=== PATIENT | male | born 1985 | race Caucasian/White ===

== ENCOUNTER 2022-02-22 00:37 | Emergency (ER) | payer OTHER ==
[2022-02-22 00:49] VITALS: BMI 23.2
[2022-02-22] MEDS ORDERED: ACETAMINOPHEN 1000 MG/100 ML BAG IVPB ONE (01:23)
[2022-02-22] MEDS ORDERED: ONDANSETRON 4 MG/2 ML VIAL IVPUSH ONE (01:23)
[2022-02-22] MEDS ORDERED: SODIUM CHLORIDE 0.9% 500 ML INFUS.BAG IV ONE (01:23)
[2022-02-22] MEDS ORDERED: ONDANSETRON 4 MG/2 ML VIAL ONE (01:51)
[2022-02-22] MEDS ORDERED: ACETAMINOPHEN INJECTION 100 ML IVPB ONE (01:51)
[2022-02-22 02:11] LABS: BASO % 0.3 % (0-2.0); EOS % 0.5 % (0-4.5); HEMATOCRIT 42.1 % (35.4-49); HEMOGLOBIN 14.3 GM/dL (11.7-16.9); LYMPH % 7.6 % (8-40); MCH 31.3 pg (25.7-33.7); MEAN CELL VOLUME 92.2 fl (80-96); MEAN PLT VOLUME 7.8 fl (7.5-11.1); MONO % 6.2 % (3.8-10.2); NEUT % 85.4 % (42.8-82.8); PLATELET COUNT 371 10^3/uL (134-434); RBC 4.56 M/mm3 (4.00-5.60); RDW 13.7 % (11.9-15.9)
[2022-02-22 02:13] LABS: EPI CELLS 2 /uL (0-25.1); HYALINE CASTS 1 /uL (0-3.1); PH,URINE 5.5 (5.0-8.0); URINE APPEARANCE CLEAR; URINE BACTERIA 2 /uL (0-1359); URINE BILIRUBIN NEGATIVE (NEGATIVE); URINE COLOR YELLOW; URINE GLUCOSE (UA) NEGATIVE (NEGATIVE); URINE KETONE TRACE (NEGATIVE); URINE LEUK ESTERASE NEGATIVE (NEGATIVE); URINE NITRITE NEGATIVE (NEGATIVE); URINE PROTEIN TRACE (NEGATIVE); URINE RBC 288 /uL (0-23.9); URINE UROBILINOGEN 0.2 mg/dL (0.2-1.0); URINE WBC 8 /uL (0-25.8)
[2022-02-22 02:35] LABS: ALBUMIN 4.1 g/dl (3.4-5.0); CALCIUM 9.6 mg/dL (8.5-10.1); MAGNESIUM 2.1 mg/dL (1.8-2.4)
[2022-02-22 02:38] LABS: CREATININE 0.9 mg/dL (0.55-1.3)
[2022-02-22 02:39] LABS: BILIRUBIN,TOTAL 0.6 mg/dL (0.2-1); TOT PROT 7.3 g/dl (6.4-8.2)
[2022-02-22] MEDS ORDERED: POLYETHYLENE GLYCOL (HEALTHYLAX) 3350 17 GM PACKET PO ONE (04:30)
[2022-02-22] MEDS ORDERED: POLYETHYLENE GLYCOL (HEALTHYLAX) 3350 17 GM PACKET ONE (04:35)
[2022-02-22 08:12] VITALS: BP 114/72; PULSE 77; RESP 17; TEMP 97.9
== END 2022-02-22 08:19 | disposition home or self-care (01) ==
LOC: JER 00:37
DX: R10.9 Unspecified abdominal pain (principal); K59.00 Constipation, unspecified
CPT/HCPCS: 0241U-QW; 36415; 74177-TC; 80053; 81003; 82272; 83605; 83690; 83735; 85025; 87086; 93005; 93010; 99285-25; Q9967

== ENCOUNTER 2022-02-22 14:57 | Inpatient (IN) | payer OTHER ==
[2022-02-22] MEDS ORDERED: ONDANSETRON 4 MG/2 ML VIAL IVPUSH ONE ×2 (16:07→17:28)
[2022-02-22] MEDS ORDERED: ACETAMINOPHEN 500 MG TABLET (FP) PO ONE (16:07)
[2022-02-22] MEDS ORDERED: ONDANSETRON 4 MG/2 ML VIAL ONE ×2 (16:33→17:39)
[2022-02-22 16:45] LABS: BASO % 0.2 % (0-2.0); EOS % 0.6 % (0-4.5); HEMATOCRIT 40.2 % (35.4-49); HEMOGLOBIN 13.8 GM/dL (11.7-16.9); LYMPH % 10.3 % (8-40); MCH 31.9 pg (25.7-33.7); MCHC 34.3 g/dl (32.0-35.9); MEAN CELL VOLUME 92.8 fl (80-96); MEAN PLT VOLUME 7.4 fl (7.5-11.1); MONO % 6.6 % (3.8-10.2); NEUT % 82.3 % (42.8-82.8); PLATELET COUNT 341 10^3/uL (134-434); RBC 4.34 M/mm3 (4.00-5.60); RDW 13.2 % (11.9-15.9); WHITE BLOOD COUNT 9.8 K/mm3 (4.0-10.0)
[2022-02-22] MEDS ORDERED: ACETAMINOPHEN 1000 MG/100 ML BAG IVPB ONE (16:56)
[2022-02-22] MEDS ORDERED: ACETAMINOPHEN INJECTION 100 ML IVPB ONE (17:01)
[2022-02-22 17:04] LABS: CALCIUM 9.3 mg/dL (8.5-10.1)
[2022-02-22 17:05] LABS: BLOOD UREA NITROGEN 14.3 mg/dL (7-18)
[2022-02-22 17:07] LABS: CREATININE 0.9 mg/dL (0.55-1.3)
[2022-02-22 17:09] LABS: BILIRUBIN,TOTAL 0.6 mg/dL (0.2-1); TOT PROT 7.2 g/dl (6.4-8.2)
[2022-02-22] MEDS ORDERED: cloNIDine HCL 0.1 MG TABLET PO ONE (17:29)
[2022-02-22] MEDS ORDERED: morphine CARPU-JECT 4 MG/1 ML DISP.SYRIN IVPUSH ONE (17:29)
[2022-02-22] MEDS ORDERED: QUEtiapine FUMARATE 400 MG TABLET PO ONE (17:29)
[2022-02-22] MEDS ORDERED: morphine SULFATE 4 MG/ML VIAL ONE (17:39)
[2022-02-22] MEDS ORDERED: cloNIDine HCL 0.1 MG TABLET ONE (17:39)
[2022-02-22] MEDS ORDERED: QUEtiapine FUMARATE 100 MG TABLET (FP) ONE (17:39)
[2022-02-22] MEDS ORDERED: ONDANSETRON 4 MG/2 ML VIAL IVPUSH PRN (18:29)
[2022-02-22] MEDS ORDERED: LACTATED RINGERS SOLUTION 1,000 ML IV SCH (18:30)
[2022-02-22] MEDS ORDERED: SEVOFLURANE 250 ML BTL ONE (18:44)
[2022-02-22] MEDS ORDERED: D5-1/2NS+20 MEQ KCL - 20 MEQ/1,000 ML INFUS.BAG IV SCH (20:30)
[2022-02-22] MEDS ORDERED: QUEtiapine FUMARATE 200 MG TABLET PO ONE ×2 (22:24)
[2022-02-22] MEDS: LACTATED RINGERS SOLUTION 1,000 ML/1,000 ML INFUS.BAG IV SCH ×2 (22:25→23:26)
[2022-02-22] MEDS ORDERED: QUEtiapine FUMARATE 100 MG TABLET (FP) PO ONE (23:15)
[2022-02-23 00:08] VITALS: BMI 23.6
[2022-02-23 06:36] LABS: URINE BARBITURATES NEGATIVE (NEGATIVE)
[2022-02-23 06:37] LABS: COCAINE, UR NEGATIVE (NEGATIVE); METHADONE, UR NEGATIVE (NEGATIVE); PHENCYCLIDINE,URINE NEGATIVE (NEGATIVE); URINE BENZODIAZEPINES NEGATIVE (NEGATIVE)
[2022-02-23 06:53] LABS: OPIATES, URI POSITIVE (NEGATIVE); URINE AMPHETAMINES NEGATIVE (NEGATIVE)
[2022-02-23 06:56] LABS: URINE APPEARANCE CLEAR; URINE BILIRUBIN NEGATIVE (NEGATIVE); URINE COLOR YELLOW; URINE GLUCOSE (UA) NEGATIVE (NEGATIVE); URINE KETONE 1+ (NEGATIVE); URINE LEUK ESTERASE NEGATIVE (NEGATIVE); URINE NITRITE NEGATIVE (NEGATIVE); URINE PROTEIN NEGATIVE (NEGATIVE); URINE UROBILINOGEN 0.2 mg/dL (0.2-1.0)
[2022-02-23 09:11] LABS: BASO % 0.1 % (0-2.0); HEMATOCRIT 38.5 % (35.4-49); HEMOGLOBIN 12.9 GM/dL (11.7-16.9); LYMPH % 11.3 % (8-40); MCHC 33.6 g/dl (32.0-35.9); MEAN CELL VOLUME 92.2 fl (80-96); MEAN PLT VOLUME 7.8 fl (7.5-11.1); MONO % 4.9 % (3.8-10.2); NEUT % 83.7 % (42.8-82.8); PLATELET COUNT 324 10^3/uL (134-434); RBC 4.18 M/mm3 (4.00-5.60); RDW 13.1 % (11.9-15.9); WHITE BLOOD COUNT 7.9 K/mm3 (4.0-10.0)
[2022-02-23 09:16] LABS: INR 1.12 (0.83-1.09); PROTHROMBIN TIME (PATIENT) 12.9 SEC (9.7-13.0)
[2022-02-23 09:18] LABS: ACTIVATED PTT 33.3 SECONDS (25.2-36.5)
[2022-02-23 09:26] LABS: CHLORIDE 105 mmol/L (98-107); SODIUM 141 mmol/L (136-145)
[2022-02-23 09:32] LABS: CALCIUM 8.8 mg/dL (8.5-10.1)
[2022-02-23 09:33] LABS: ALBUMIN 3.4 g/dl (3.4-5.0); ANION GAP 9 MMOL/L (8-16); BLOOD UREA NITROGEN 10.2 mg/dL (7-18); CO2 27 mmol/L (21-32); GLUCOSE,RANDOM 88 mg/dL (74-106); MAGNESIUM 2.2 mg/dL (1.8-2.4)
[2022-02-23 09:36] LABS: CREATININE 0.7 mg/dL (0.55-1.3); PHOSPHOROUS 4.2 mg/dL (2.5-4.9); SGOT/AST 32 U/L (15-37); SGPT/ALT 36 U/L (13-61)
[2022-02-23 09:38] LABS: BILIRUBIN,TOTAL 0.7 mg/dL (0.2-1); TOT PROT 6.2 g/dl (6.4-8.2)
[2022-02-23 09:39] LABS: ALK PHOS 71 U/L (45-117)
[2022-02-23] MEDS ORDERED: QUEtiapine FUMARATE 200 MG TABLET PO SCH (10:00)
[2022-02-23] MEDS: PANTOPRAZOLE SODIUM 40 MG VIAL IVPUSH SCH (10:08)
[2022-02-23] MEDS: ACETAMINOPHEN 1000 MG/100 ML BAG IVPB PRN ×2 (10:20→15:56)
[2022-02-23] MEDS ORDERED: LACTATED RINGERS SOLUTION 1,000 ML/1,000 ML INFUS.BAG IV SCH (17:30)
[2022-02-23] MEDS ORDERED: PROCHLORPERAZINE INJECTION 10 MG/2 ML VIAL IVPB ONE (20:53)
[2022-02-23] MEDS ORDERED: LORazepam 2 MG/ML SDV VIAL IVPUSH ONE (20:55)
[2022-02-23] MEDS: QUEtiapine FUMARATE 200 MG TABLET PO SCH (21:49)
[2022-02-24] MEDS ORDERED: ACETAMINOPHEN 1000 MG/100 ML BAG IVPB ONE (09:59)
[2022-02-24] MEDS: PANTOPRAZOLE SODIUM 40 MG VIAL IVPUSH SCH (11:21)
[2022-02-24] MEDS: QUEtiapine FUMARATE 200 MG TABLET PO SCH (11:41)
[2022-02-24] MEDS ORDERED: LORazepam 2 MG/ML SDV VIAL IVPUSH SCH (12:15)
[2022-02-24] MEDS ORDERED: cloNIDine HCL 0.1 MG TABLET PO SCH ×2 (13:45)
[2022-02-24] MEDS: HALOPERIDOL 5 MG TABLET PO ONE ×2 (14:16→16:15)
[2022-02-24] MEDS ORDERED: LORazepam 2 MG/ML SDV VIAL IVPUSH ONE (17:00)
[2022-02-24] MEDS ORDERED: HALOPERIDOL LACTATE 5 MG/ML IM ONE (17:00)
[2022-02-24] MEDS ORDERED: HALOPERIDOL LACTATE 5 MG/ML IV ONE (17:06)
[2022-02-24] MEDS: PATIENT'S OWN MEDICATION (NON-FORMULARY) (Clonidine Hcl [Clonidine Hcl Er] 0.1 MG Tab.Er.1 PO SCH ×2 (17:19→17:20)
[2022-02-24] MEDS ORDERED: MIDAZOLAM HCL 2 MG/2 ML SINGLE DOSE VIAL ONE (17:57)
[2022-02-24] MEDS ORDERED: ONDANSETRON 4 MG/2 ML VIAL IVPUSH PRN (18:40)
[2022-02-24] MEDS ORDERED: PROMETHAZINE HCL 25 MG/1 ML VIAL IVPUSH PRN (18:40)
[2022-02-24] MEDS ORDERED: LACTATED RINGERS SOLUTION 1,000 ML IV SCH (18:45)
[2022-02-24] MEDS: DEXTROSE 5%-0.45% SALINE 1,000 ML IV SCH (19:30)
[2022-02-24] MEDS ORDERED: HALOPERIDOL LACTATE 5 MG/ML IM PRN ×2 (23:08→23:11)
[2022-02-24] MEDS: LORazepam 2 MG/ML SDV VIAL IVPUSH PRN (23:47)
[2022-02-25] MEDS: LORazepam 2 MG/ML SDV VIAL IVPUSH PRN ×2 (08:22→18:23)
[2022-02-25] MEDS ORDERED: ACETAMINOPHEN 1000 MG/100 ML BAG IVPB ONE (08:48)
[2022-02-25] MEDS ORDERED: LORazepam 2 MG/ML SDV VIAL IVPB ONE (09:30)
[2022-02-25] MEDS ORDERED: HALOPERIDOL LACTATE 5 MG/ML IM ONE (10:30)
[2022-02-25] MEDS ORDERED: PEG 3350/NA SULF BICARB CL/KCL 4000 ML SOLN.RECON PO ONE (12:35)
[2022-02-25] MEDS: LORazepam 1 MG TABLET PO SCH ×2 (13:29→18:23)
[2022-02-25] MEDS: DEXTROSE 5%-0.45% SALINE 1,000 ML IV SCH (18:23)
[2022-02-25] MEDS ORDERED: TRIMETHOBENZAMIDE HCL 200MG/2ML INJ IM ONE (19:59)
[2022-02-25] MEDS ORDERED: PROCHLORPERAZINE INJECTION 10 MG/2 ML VIAL IVPB ONE (20:02)
[2022-02-25] MEDS ORDERED: LORazepam 2 MG/ML SDV VIAL IVPUSH ONE (20:52)
[2022-02-25 21:59] LABS: BASO % 0.7 % (0-2.0); EOS % 0.5 % (0-4.5); HEMATOCRIT 39.8 % (35.4-49); HEMOGLOBIN 13.6 GM/dL (11.7-16.9); MCH 31.2 pg (25.7-33.7); MCHC 34.2 g/dl (32.0-35.9); MEAN CELL VOLUME 91.2 fl (80-96); MEAN PLT VOLUME 7.5 fl (7.5-11.1); MONO % 7.1 % (3.8-10.2); NEUT % 66.7 % (42.8-82.8); PLATELET COUNT 350 10^3/uL (134-434); RBC 4.36 M/mm3 (4.00-5.60); RDW 13.1 % (11.9-15.9); WHITE BLOOD COUNT 5.6 K/mm3 (4.0-10.0)
[2022-02-25 22:09] LABS: INR 1.21 (0.83-1.09)
[2022-02-25 22:32] LABS: ALBUMIN 3.8 g/dl (3.4-5.0); CALCIUM 9.1 mg/dL (8.5-10.1)
[2022-02-25 22:35] LABS: CREATININE 0.7 mg/dL (0.55-1.3)
[2022-02-25 22:37] LABS: BILIRUBIN,TOTAL 0.5 mg/dL (0.2-1); TOT PROT 6.9 g/dl (6.4-8.2)
[2022-02-25] MEDS ORDERED: MIDAZOLAM HCL 2 MG/2 ML SINGLE DOSE VIAL ONE (23:13)
[2022-02-25] MEDS: QUEtiapine FUMARATE 200 MG TABLET PO SCH (23:56)
[2022-02-26 01:01] VITALS: RESP 18
[2022-02-26] MEDS: LORazepam 1 MG TABLET PO SCH ×4 (01:24→12:21)
[2022-02-26] MEDS: DEXTROSE 5%-0.45% SALINE 1,000 ML IV SCH ×2 (09:24→17:33)
[2022-02-26] MEDS: QUEtiapine FUMARATE 200 MG TABLET PO SCH ×3 (09:47→21:00)
[2022-02-26] MEDS: chlorproMAZINE HCL 25 MG/1 ML AMP IM ONE ×2 (11:39→13:03)
[2022-02-26] MEDS ORDERED: LORazepam 2 MG/ML SDV VIAL IM ONE (13:30)
[2022-02-26] MEDS ORDERED: HALOPERIDOL LACTATE 5 MG/ML IM ONE (13:33)
[2022-02-26] MEDS ORDERED: clonazePAM 0.5 MG TABLET PO SCH (14:00)
[2022-02-26] MEDS ORDERED: LORazepam 2 MG/ML SDV VIAL IVPUSH ONE (14:15)
[2022-02-26] MEDS ORDERED: diazePAM CARPU-JECT 10 MG/2 ML DISP.SYRIN IVPUSH PRN (18:00)
[2022-02-26] MEDS: clonazePAM 0.5 MG TABLET PO SCH ×2 (18:01→21:00)
[2022-02-27] MEDS: clonazePAM 0.5 MG TABLET PO SCH ×3 (06:27→21:56)
[2022-02-27] MEDS: QUEtiapine FUMARATE 200 MG TABLET PO SCH ×2 (09:09→21:56)
[2022-02-27 15:50] VITALS: BP 126/76; PULSE 74; TEMP 97.6
[2022-02-27] MEDS ORDERED: PEG 3350/NA SULF BICARB CL/KCL 4000 ML SOLN.RECON PO ONE (16:14)
[2022-02-27] MEDS ORDERED: POLYETHYLENE GLYCOL (HEALTHYLAX) 3350 17 GM PACKET PO SCH (22:00)
[2022-02-28] MEDS: clonazePAM 0.5 MG TABLET PO SCH (06:32)
[2022-02-28] MEDS: QUEtiapine FUMARATE 200 MG TABLET PO SCH (09:28)
== END 2022-02-28 12:45 | disposition left against medical advice (07) | DRG 753 ==
LOC: JER 14:57 → UNDOADMIN 17:49 → JERBED 17:49 → JASUSAT 20:22 → SUATTDRO 20:22 → JASUSAT 22:55 → UNDOADMIN 22:55 → J8W 22:55
PROVIDERS: ADMIT Surgery; ATTEND Internal Medicine
PROC: 0DC68ZZ Extirpation of Matter from Stomach, Via Natural or Artificial Opening Endoscopic (ICD-10-PCS; 2022-02-24)
PROC: 0DC68ZZ Extirpation of Matter from Stomach, Via Natural or Artificial Opening Endoscopic (ICD-10-PCS; 2022-02-25)
PROC: 0DC98ZZ Extirpation of Matter from Duodenum, Via Natural or Artificial Opening Endoscopic (ICD-10-PCS; principal; 2022-02-25 10:00)
DX: F31.9 Bipolar disorder, unspecified (principal); K92.0 Hematemesis; T18.8XXA Foreign body in other parts of alimentary tract, initial encounter; R04.2 Hemoptysis; F41.0 Panic disorder [episodic paroxysmal anxiety]; F43.10 Post-traumatic stress disorder, unspecified; F12.20 Cannabis dependence, uncomplicated; F11.10 Opioid abuse, uncomplicated; R45.87 Impulsiveness; F60.3 Borderline personality disorder; X58.XXXA Exposure to other specified factors, initial encounter; Y93.89 Activity, other specified; Y92.89 Other specified places as the place of occurrence of the external cause; Y99.8 Other external cause status
CPT/HCPCS: 36415; 70360-TC-FY; 70490-TC; 71045-TC-FY; 71046-TC-FY; 71250-TC; 74018-TC-FY; 74019-TC-FY; 74176-TC; 80053; 80307; 81003; 82962; 83735; 84100; 84443; 84484; 85025; 85610; 85730; 86850; 86900; 86901; 88300-TC; 93005; 93010; 94760; 99285-25; C9803-CS; U0003; U0005